=== PATIENT | male | born 1970 | race Caucasian/White ===

== ENCOUNTER 2022-05-11 09:37 | Emergency (ER) | payer OTHER, SELFPAY ==
--- NOTE | ~2022-05-11 | XR_ITS ---
EXAMINATION: XR chest 2V DATE: 05/11/2022 10:36 INDICATION: Back pain TECHNIQUE: PA and lateral views of the chest are obtained. COMPARISON: None available FINDINGS: The lungs are free of acute opacities. No pleural effusion or pneumothorax. The cardiomedia stinal silhouette is normal. Healed right-sided rib fractures are noted. IMPRESSION: 1. No acute cardiopulmonary abnormality. Reviewed, dictated and finalized at location A.
[2022-05-11 09:49] VITALS: BP 138/91; PULSE 58; RESP 14; O2SAT 100
--- NOTE | 2022-05-11 09:56 | ECG_ITS ---
Measurements Intervals [place] Rate: 49 P: 28 MD: 168 QRS: 4 QRSD: 86 T: 11 QT: 461 QTc: 416 Interpretive Statements SINUS BRADYCARDIA ANTEROSEPTAL INFARCT, AGE INDETERMINATE CONSIDER INFERIOR INFARCT, AGE INDETERMINATE BASELINE ARTIFACT- V1 ABNORMAL ECG NO PREVIOUS ECG AVAILABLE FOR COMPARISON Electronically Signed On 05-11-2022 11:58:13 CDT by Saqib Marquez D.O.
--- NOTE | 2022-05-11 09:57 | ED.BACK ---
HPI - Back Pain/Injury General Chief Complaint: Back Pain/Injury <MAKENNA Cancino Last Filed: 05/11/22 18:32> Stated Complaint: back pain <MAKENNA Cancino Last Filed: 05/11/22 18:32> Time Seen by Provider: 05/11/22 09:43 <MAKENNA Cancino Last Filed: 05/11/22 18:32> History of Present Illness HPI Narrative: Patient is a 51-year-old male with history of hypertension here for evaluation of mid back pain for the past week and a half. Patient states the pain is present under his bilateral shoulder blades and is worse with movement of his thorax and arms in addition to deep breaths. He has been attempting lidocaine patches, naproxen, Tylenol at home with mild but not complete relief of his pain. He states the pain worsened today which prompted his emergency department evaluation. He was recently treated for COVID 3 weeks ago with paxlovid, notes that his cough and congestion have improved. He denies any chest pain, shortness of breath, cough, fevers, chills, leg pain. 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 <MAKENNA Cancino Last Filed: 05/11/22 18:32> Related Data Allergies/Adverse Reactions: Allergies Allergy/AdvReac Type Severity Reaction Status Date / Time Penicillins Allergy Swelling Verified 05/11/22 12:40 of Lip/Tongue/Throat <MAKENNA Cancino Last Filed: 05/11/22 18:32> Review of Systems Review of Systems: Gen: Denies fevers or chills Eyes: Denies eye pain or visual change ENT: Denies congestion Respiratory: Denies shortness of breath or cough CV: Denies chest pain or palpitations GI: Denies abdominal pain nausea, emesis or diarrhea : denies burning, urgency, frequency or hematuria Musculoskeletal: Reports back pain. Neuro: Denies numbness, tingling, weakness or focal weakness Skin: Denies rash Except as documented, all other systems reviewed and negative <MAKENNA Cancino Last Filed: 05/11/22 18:32> Exam Narrative: APPEARANCE: Well appearing, no pain in distress, well-nourished. Head: Normocephalic and atraumatic. EYES: PERRLA/EOMI, conjunctivae clear NOSE: No nasal drainage EARS: External ear normal in appearance THROAT: Oropharynx is clear. Mucous membranes are moist. NECK: Supple. No adenopathy, no masses. RESPIRATORY: Notes pain with deep breaths. airway patent, respirations nonlabored. Clear to auscultation bilaterally, no rales, rhonchi, wheezing. CARDIOVASCULAR: Regular rate and rhythm without murmurs, rubs, or gallops. ABDOMINAL: Normoactive bowel sounds. Soft, nontender, nondistended. No rebound tenderness or guarding. MUSCULOSKELETAL: Tender to palpation to the left inferior scapula and right superior scapula. extremities are warm and well-perfused. Moves all extremities well. No edema. NEURO: Normal speech. No focal neurologic deficits. SKIN: Skin is warm and dry. No rashes. PSYCHIATRIC: Normal affect/mood. 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 Patient does have significant heavy lifting, use at work and does have to often have his arms in a sustained overhead position holding heavy objects. At the time of assessment, patient is neurovascularly intact without evidence of deformity or injury on exam. Pain is reproducible with movement and palpation. There is no midline cervical, thoracic, or lumbar pain. Cardiac work-up is reassuring. D-dimer is negative. Chest x-ray is clear. At this point, plan for discharge home with close outpatient follow-up given reassuring work-up today. We will optimize outpatient medication regimen. Plan discussed with patient, , family. For this patient encounter, I reviewed the WELDING MACHINE OPERATOR THERMIT or PA documentation, treatment plan, and medical decision making; and I had [id number] ti
[2022-05-11 10:42] VITALS: BP 125/81; PULSE 56; RESP 16; O2SAT 98
[2022-05-11 10:52] LABS: Basophils Percent Auto 0.4 % (0.2-1.2); Eosinophils Absolute Auto 0.1 K/mm3 (0-0.3); Eosinophils Percent Auto 1.2 % (0-4.4); Hematocrit 38.2 % (42.0-52.0); Hemoglobin 13.5 g/dL (14.0-18.0); Immature Granulocyte Absolute 0.02 K/mm3 (0.00-0.031); Immature Granulocyte Percent A 0.4 % (0-0.5); Lymphocytes Absolute Auto 1.36 K/mm3 (0.9-3.2); Lymphocytes Percent Auto 24.1 % (18.3-44.2); Mean Corpuscular HGB Conc 35.3 g/dl (32-36); Mean Corpuscular Hemoglobin 33.8 pg (26-34); Mean Corpuscular Volume 95.5 fl (80-100); Mean Platelet Volume 9.5 fl (7.4-10.4); Monocytes Absolute Auto 0.5 K/mm3 (0.1-0.6); Monocytes Percent Auto 8.9 % (2.6-8.5); Neutrophils Absolute Auto 3.7 K/mm3 (1.3-6.7); Platelet Count Result 415 k/mm3 (150-375); Red Cell Distribution Width 12.5 % (11.5-14.5); White Blood Count 5.6 K/mm3 (4.5-10.0)
[2022-05-11 11:02] LABS: Alanine Aminotransferase 18 U/L (6-50); Albumin Level 4.2 g/dL (3.5-5.1); Alkaline Phosphatase 73 U/L (38-126); Anion Gap 3 mmol/L (8-16); Aspartate Amino Transferase 36 U/L (17-59); Bilirubin,Total 0.4 mg/dL (0.2-1.3); Blood Urea Nitrogen 12 mg/dL (9-20); Carbon Dioxide 28 mmol/L (22-30); Chloride 102 mmol/L (98-107); Estimated CRCL calculation 74 ml/min; Estimated Glomerular Filt Rate > 60; Glucose 105 mg/dL (65-110); Potassium 3.9 mmol/L (3.4-5.0); Sodium 133 mmol/L (137-145)
[2022-05-11 11:13] LABS: Troponin I < 0.012 ng/mL (0.000-0.034)
[2022-05-11 11:14] LABS: D Dimer 0.44 ug/mL (<0.48)
[2022-05-11] MEDS: predniSONE 20 MG TABLET 40 MG PO (12:40)
[2022-05-11] MEDS: methocarbamoL 500 MG TABLET PO (12:40)
[2022-05-11] MEDS: KETOROLAC 30 MG/ML VIAL (*BKC) IM (12:40)
[2022-05-11 13:33] VITALS: BP 163/99; PULSE 57; RESP 18; O2SAT 100
== END 2022-05-11 13:38 | disposition home or self-care (01) ==
PROVIDERS: Physician Assistant; Emergency Provider Emergency Medicine
DX: M54.6 Pain in thoracic spine (principal); I10 Essential (primary) hypertension; Z86.16 Personal history of COVID-19; R00.1 Bradycardia, unspecified; R94.31 Abnormal electrocardiogram [ECG] [EKG]
CPT/HCPCS: 36415; 71046; 80053; 84484; 85025; 85380; 93005; 96372; 99284; A9270; J1885; J7512

== ENCOUNTER 2022-11-19 12:04 | Observation (INO) | payer OTHER, SELFPAY ==
[2022-11-19] VITALS (21 sets, daily range): BP systolic 90–146; BP diastolic 45–84; PULSE 83–112; RESP 16–28; TEMP 35.6–36.8; O2SAT 96–100; BMI 30.6
--- NOTE | ~2022-11-19 | CT_ITS ---
CT of the Abdomen and Pelvis: Indication: Nausea and vomiting, hernia Technique: 2.5 mm axial scans were obtained through the abdomen and pelvis following intravenous adm inistration of 100 cc of Omnipaque 350. Dose reduction technique was used on this scan by utilizing a utomated exposure control and iterative reconstruction technique. The dose-length product (DLP) was 6 64.45 mGy-cm. Findings: Scans through the lung bases are unremarkable. The liver, spleen, pancreas, gallbladder, and adrenal glands are within normal limits. No evidence o f aortic aneurysm. Probable minimal fullness of the renal collecting systems with fullness of the goyo ateral ureters. No lymphadenopathy. No bowel obstruction or bowel wall thickening. There is no evidence to suggest acute appendicitis. Images through the pelvis were performed. Urinary bladder unremarkable. There is mild haziness of per ivesical fat. Prostate gland and seminal vesicles are unremarkable. No ascites. Bilateral L5 pars int erarticularis defects are present, with minimal grade 1 anterolisthesis of L5 over S1. Impression: Fullness of the bilateral ureters, with probable minimal dilatation of the renal collecting systems. Mild haziness of perivesical fat. Correlate for cystitis. Bilateral L5 pars interarticularis defects, with minimal grade 1 anterolisthesis of L5 over S1. Reviewed, dictated and finalized at location . Impression: Fullness of the bilateral ureters, with probable minimal dilatation of the chiquita l collecting systems. Mild haziness of perivesical fat. Correlate for cystitis. Bilateral L5 pars interarticularis defects, with minimal grade 1 anterolisthesi s of L5 over S1.
--- NOTE | ~2022-11-19 | CT_ITS ---
Clinical Indication: Dyspnea CT Scan of the Chest with Contrast: Technique: Contiguous sections were acquired throughout the chest after intravenous administration of 100 cc of Omnipaque 350. Dose reduction technique was used on this scan by utilizing automated expos ure control and iterative reconstruction technique. The dose-length product (DLP) was 842.57 mGy-cm. Findings: There is no evidence of any significant mediastinal, hilar or axillary lymphadenopathy. There is no f illing defect in the pulmonary arterial tree to suggest pulmonary embolus. There is no evidence of ao rtic dissection or aneurysm. There is no evidence of pleural or pericardial effusion. The lungs are clear. No pulmonary nodules or infiltrates are noted. Images through the upper abdomen reveal no abnormalities. Impression: No evidence of pulmonary embolus, aortic dissection, or aortic aneurysm. Clear lungs. Reviewed, dictated and finalized at [facility]. Impression: No evidence of pulmonary embolus, aortic dissection, or aortic aneurysm. Clear lungs.
--- NOTE | ~2022-11-19 | CT_ITS ---
EXAMINATION: CT brain wo con DATE: 11/19/2022 13:14 INDICATION: Dizziness TECHNIQUE: Computed tomography (CT) of the head was performed without intravenous contrast. Sagittal and coronal reconstructions were performed. The mA was adjusted according to patient size. Iterative reconstruction technique was employed. The dose-length product was 605.33 mGy-cm. COMPARISON: None FINDINGS: No acute intracranial hemorrhage, acute infarction or abnormal extra axial fluid collection. Ventricl es are normal and symmetric. No mass/mass effect. The orbits, paranasal sinuses and mastoid air cells are normal. IMPRESSION: 1. Normal brain. No acute intracranial process. Reviewed, dictated and finalized at location A.
--- NOTE | ~2022-11-19 | XR_ITS ---
EXAMINATION: XR chest 1V portable DATE: 11/19/2022 12:36 INDICATION: Chest pain and vomiting TECHNIQUE: frontal view of the chest was obtained. COMPARISON: Chest radiograph dated 05/11/2022 FINDINGS: The lungs are clear with no focal airspace opacities, pulmonary edema, pleural effusion or pneumothor ax. The cardiomediastinal silhouette is normal. Visualized bones and soft tissues are unremarkable. IMPRESSION: 1. No acute cardiopulmonary disease. Reviewed, dictated and finalized at location A.
--- NOTE | 2022-11-19 12:05 | ECG_ITS ---
Measurements Intervals [place] Rate: 112 P: 48 NV: 159 QRS: -11 QRSD: 95 T: 29 QT: 352 QTc: 482 Interpretive Statements SINUS TACHYCARDIA ANTEROSEPTAL INFARCT, AGE INDETERMINATE CONSIDER INFERIOR INFARCT, AGE INDETERMINATE ABNORMAL ECG COMPARED TO ECG 05/11/2022 10:16:55 SINUS TACHYCARDIA NOW PRESENT Electronically Signed On 11-19-2022 13:21:48 CDT by Saqib Marquez D.O.
[2022-11-19 12:26] LABS: Basophils Percent Auto 0.2 % (0.2-1.2); Eosinophils Percent Auto 0.1 % (0-4.4); Hematocrit 41.4 % (42.0-52.0); Hemoglobin 15.5 g/dL (14.0-18.0); Immature Granulocyte Absolute 0.03 K/mm3 (0.00-0.031); Immature Granulocyte Percent A 0.3 % (0-0.5); Lymphocytes Absolute Auto 2.35 K/mm3 (0.9-3.2); Lymphocytes Percent Auto 26.3 % (18.3-44.2); Mean Corpuscular HGB Conc 37.4 g/dl (32-36); Mean Corpuscular Hemoglobin 34.5 pg (26-34); Mean Corpuscular Volume 92.2 fl (80-100); Mean Platelet Volume 9.3 fl (7.4-10.4); Monocytes Absolute Auto 0.7 K/mm3 (0.1-0.6); Monocytes Percent Auto 7.7 % (2.6-8.5); Neutrophils Absolute Auto 5.9 K/mm3 (1.3-6.7); Neutrophils Percent Auto 65.4 % (45.5-73.1); Platelet Count Result 370 k/mm3 (150-375); Red Blood Count 4.49 M/mm3 (4.6-6.20); Red Cell Distribution Width 13.2 % (11.5-14.5)
[2022-11-19] MEDS: SODIUM CHLORIDE 0.9% IV 1,000 ML 999 ML IV CONT ×3 (12:38→19:27)
[2022-11-19] MEDS: ONDANSETRON INJ 4 MG/2 ML VIAL IV PUSH ×2 (12:38→14:21)
[2022-11-19 12:40] LABS: Alanine Aminotransferase 21 U/L (6-50); Albumin Level 4.4 g/dL (3.5-5.1); Alkaline Phosphatase 57 U/L (38-126); Anion Gap 10 mmol/L (8-16); Aspartate Amino Transferase 50 U/L (17-59); Bilirubin,Total 0.5 mg/dL (0.2-1.3); Blood Urea Nitrogen 9 mg/dL (9-20); Calcium 8.8 mg/dL (8.4-10.2); Carbon Dioxide 21 mmol/L (22-30); Chloride 104 mmol/L (98-107); Estimated CRCL calculation 83 ml/min; Estimated Glomerular Filt Rate > 60; Glucose 154 mg/dL (65-110); Lipase 123 U/L (23-300); Sodium 135 mmol/L (137-145)
[2022-11-19 12:42] LABS: INR 1.1; Prothrombin Time 13.6 Seconds (11.1-14.7)
[2022-11-19 12:43] LABS: Partial Thromboplastin Time 27.4 SECONDS (22.3-36.8)
[2022-11-19 12:48] LABS: D Dimer 0.58 ug/mL (<0.48)
[2022-11-19 12:51] LABS: Troponin I < 0.012 ng/mL (0.000-0.034)
--- NOTE | 2022-11-19 12:59 | ED.GENADULT ---
HPI - General Adult General Chief complaint: Arrhythmia/Palpitations Stated complaint: palpitations-chest pain Time Seen by Provider: 11/19/22 12:12 Source: family and RN notes reviewed History of Present Illness HPI narrative: Patient presents to emergency department from home for palpitations. Patient states that starting in the middle night last night began to feel like his heart was beating fast he states has been associate with nausea vomiting as well as a sensation of brain fog. He denies having fevers or chills he denies any vision changes he denies any chest pain or shortness of breath he denies any diarrhea. Patient states he has had no abdominal pain states he has not been able to keep anything down today he denies any other symptoms at this. The patient does have a history of alcohol use and is on disulfiram his birthday is today and he did go out yesterday and drink. He states he last took his Dilusol from yesterday late afternoon and states that he did drink several drinks last night with last drink last evening Her history taking discussed with the patient as well as his who was present as well as his daughter on the phone Related Data Home Medications Medication Instructions Recorded Confirmed cyclobenzaprine 5 mg tablet mg 11/19/22 11/19/22 disulfiram 250 mg tablet mg 11/19/22 folic acid 1 mg tablet 11/19/22 hydrochlorothiazide 25 mg tablet mg 11/19/22 losartan 50 mg tablet mg 11/19/22 verapamil 240 mg tablet,extended mg PO 11/19/22 release Allergies Allergy/AdvReac Type Severity Reaction Status Date / Time Penicillins Allergy Swelling Verified 11/19/22 12:13 of Lip/Tongue/Throat Review of Systems Review of Systems: Gen.: Denies fevers or chills ENT: Denies congestion Respiratory: Denies shortness of breath or cough CV: Denies chest pain palpitation GI: Denies abdominal pain or diarrhea. Reports nausea and vomitting Musculoskeletal: Denies back pain or muscle pain Neuro: Denies numbness, tingling, weakness or focal weakness Skin: Denies rash Except as documented, all other systems reviewed and negative [facility] Past Medical History Medical History (Updated 11/19/22 @ 16:16 by Wally Stanford DO) Hypertension Social History Social History (Updated 11/19/22 @ 16:13 by Wally C. [place], DO) Smoking status: Never smoker Exam Narrative: APPEARANCE: No acute distress, nontoxic, resting in bed EYES: EOMI, PERRL HEENT: Normocephalic, atraumatic, mucosa dry RESPIRATORY: No respiratory distress Clear to auscultation bilaterally with no rhonchi wheezing or rales. CARDIOVASCULAR: Regular rate and rhythm without murmurs rubs or gallops. ABDOMINAL: Soft, nontender, nondistended, no rebound or guarding MUSCULOSKELETAl: Moves all extremities. No clubbing, cyanosis or edema. NEURO: Awake and alert x 4 Following commands, speech normal, no focal deficits SKIN:: Warm, dry. No rashes lesions or abrasions PSYCHIATRIC: Normal affect/mood, Course Course Emergency Course: Did contact poison control with the patient with an alcohol level greater than 150 currently on disulfiram symptomatic treatment is recommended : Discussed with HEATHER Forbes for Dr. Waite presentation and work-up agrees with admission at this time to the hospital service Discussed with patient and family results of workup and diagnosis. Discussed need for admission. Patient and family understand and agree to current treatment plan Vital Signs Vital signs: Vital Signs Temperature 97.1 F L 11/19/22 12:14 Pulse Rate 104 H 11/19/22 12:14 Respiratory Rate 16 11/19/22 12:14 Blood Pressure 110/56 L 11/19/22 12:14 Pulse Oximetry 98 11/19/22 12:14 Oxygen Delivery Room Air 11/19/22 12:14 Temperature 97.1 F L 11/19/22 12:14 Pulse Rate 89 11/19/22 16:01 Respiratory Rate 22 H 11/19/22 16:01 Blood Pressure 99/58 L 11/19/22 16:01 Pulse Oximetry 100 11/19/22 16:01 Oxygen Delivery Room A
[2022-11-19 13:01] LABS: Magnesium 1.7 mg/dL (1.6-2.3)
[2022-11-19 13:02] LABS: Ethanol 158 mg/dL (<10)
[2022-11-19 13:11] LABS: Lactic Acid Reflex 4.7 mmol/L (0.7-2.0)
[2022-11-19 13:25] LABS: Influenza A QL RT-PCR Negative (Negative); Influenza B QL RT-PCR Negative (Negative); SARS-CoV-2 RNA PCR Negative
[2022-11-19] MEDS: POTASSIUM CHLORIDE INJ 40 MEQ in SODIUM CHLORIDE 0.9% IV 500 ML 130 MEQ IVPB (13:27)
--- NOTE | 2022-11-19 13:48 | PC.NURSE ---
poison Control report that pt needs s/s management, fluid replacement, nausea medication. do an ekg reported to Dr Stanford
[2022-11-19 14:03] LABS: Alveolar/Arterial O2 Gradient 0.5 mmHg; Base Excess ABG -2.6 mEq/l (+/-2.0); Carboxyhemoglobin 0.3 % THb (0-2.0); Device ROOM AIR; Fractional Inspired Oxygen 21 %; Methemoglobin ABG 0.6 %THb (0-1.5); Modified Allen's Test Pass; Oxygen Content ABG 18.9 %vol (16.0-22.0); Oxygen Saturation ABG 98.4 % (95.0-100.0); Oxyhemoglobin 96.7 % THb (90.0-100.0); PCO2 ABG 28.9 mmHg (35.0-45.0); PO2 ABG 114.6 mmHg (80.0-100.0); PO2 FiO2 Ratio Arterial Blood 5.46 %; Reduced Hemoglobin 2.4 %THb (0-5.0); Site Drawn RIGHT RADIAL; Total Hemoglobin 13.8 g/dL (12.0-18.0); pH ABG 7.458 (7.350-7.450)
[2022-11-19 14:05] LABS: Appearance Urine Clear (Clear); Bacteria Urine None Seen /hpf; Bilirubin Urine Negative (Negative); Blood Urine Negative (Negative); Color Urine Dark Yellow (Yellow); Glucose Urine UA Negative (Negative); Ketones Urine 1+ mg/dL (Negative); Leukocyte Esterase Ur Negative LEU/UL (Negative); Nitrate Urine Negative (Negative); Protein Urine 1+ mg/dL (Negative); RBC Urine 0-2 /hpf (0-2); Squamous Epithelial Cell Urine None seen /hpf (Few); WBC Urine 0-5 /hpf
[2022-11-19 14:14] LABS: Add Urine Microscopic? YES
[2022-11-19 15:26] LABS: Troponin I < 0.012 ng/mL (0.000-0.034)
[2022-11-19 15:48] LABS: Reflex Lactic Acid Yes or No Add Lactic
--- NOTE | 2022-11-19 15:48 | PC.NURSE ---
POISON CONTROL CALLED BACK FOR UPDATE. AWARE OF PT BEING ADMITTED TO IMU AND TO CONTINUE BEING MONITORED
--- NOTE | 2022-11-19 17:00 | ADMGEN ---
This patient, Krzysztof Prince, was admitted to IMU Room 206-02. Patient/family oriented to hospital policies and general routines including ID bracelet, bed and alarms, visiting hours, pain management, procedures, bathroom and other care routines, personal items, smoking policy, room service/diet, and visiting hours. Information on how to activate the Rapid Response Team has been discussed. Patient/Family are encouraged to report perceived risks to care and to ask questions if they do not understand what they are told or what they should do.
--- NOTE | 2022-11-19 17:42 | PM.IMHP ---
H&P: HPI History of Present Illness Date/Time: 11/19/22 17:42 Chief Complaint: arrhythmia and palpitation Narrative: this is a 52-year-old male patient who has a history of alcohol abuse. The patient came to the emergency room today with complaint of palpitations. The patient started having this discomfort in the midline night last night. Patient stated that his heart was beating fast he also had nausea vomiting and sensation of brain fog. The patient denied have any fever or chills. No visual changes. No chest pain or shortness of breath. The patient had no abdominal pain but stated that he is not able to keep anything down today. The patient is on Dilusol? for alcohol abuse and he took his last dose yesterday late afternoon it stated that he did drink several drinks last night. His D-dimer was 0.58. PH 7.458 pCO2 was 28.9 PO2 114.6. Bicarb 20. Sodium was 135 repeat 137 potassium was 3.0 which was supplemented and he is up to 3.6 now. His glucose was 154 now 128. Lactic acid 4.7 now 6.1. Troponins nonreactive x3. He was negative for influenza A/B and COVID. Chest CTA which shows no evidence of pulmonary embolism aortic dissection or aortic aneurysm. Head CT shows normal brain no acute intracranial process. Chest x-ray no acute cardiopulmonary disease. The patient was given a total of 3 L of normal saline, the task Zofran and magnesium. The patient is being admitted to observation status on the date of service of 11/19/2022 Review of Systems Review of Systems: see HPI All systems reviewed & are unremarkable except as noted in HPI and below Constitutional: Constitutional: Reports as per HPI and Reports no additional constitutional complaints Eyes: Eyes: Reports as per HPI and Reports no additional eye complaints ENT: Reports system reviewed and no additional complaints, except as documented and Reports Normal hearing present Cardiovascular: Cardiovascular: Reports no additional cardiovascular complaints Respiratory: Respiratory: Reports no additional respiratory complaints and Reports no additional respiratory complaints Gastrointestinal: Gastrointestinal: Reports as per HPI and Reports no additional gastrointestinal complaints Musculoskeletal: Musculoskeletal: Reports no additional musculoskeletal complaints Integumentary/Breasts: Skin/Breast: Reports system reviewed and no additional complaints, except as docu and Reports as per HPI Neurologic: Reports system reviewed and no additional complaints, except as documented, Reports as per HPI and Reports Normal hearing present Psychiatric: Psychiatric: Reports no additional psychiatric complaints and Reports as per HPI Endocrine: Endocrine: Reports no additional endocrine complaints Hematologic/Lymphatic: Hematologic/Lymphatic: Reports no additional hematologic/lymphatic complaints Allergic/Immunologic: Allergic/Immunologic: Reports no additional allergic/immunologic complaints [facility] Past Medical History Medical History (Updated 11/19/22 @ 22:49 by Leidy Lira NP) Alcoholism Hypertension Surgical History Surgical History (Updated 11/19/22 @ 22:49 by Leidy Lira NP) H/O cervical spine surgery H/O shoulder surgery left S/P rotator cuff repair left Family History Family History (Updated 11/19/22 @ 22:50 by Leidy Lira NP) Father COPD (chronic obstructive pulmonary disease) Social History Social History (Updated 11/19/22 @ 22:51 by Leidy Lira NP) Social History: the patient is and lives with his . He has a history of alcohol abuse and has a drink for quite some time but this was his birthday weak again and he did drink some alcohol. The patient occasionally uses some marijuana socially. The patient works for [employer]. He has 2 children code status full code Smoking status: Never smoker Alcohol intake: former Drinks per week: 28 Substance use: never Lack of Transportation: No Lack
[2022-11-19 18:30] LABS: Troponin I < 0.012 ng/mL (0.000-0.034)
[2022-11-19 18:40] LABS: Lactic Acid 6.1 mmol/L (0.7-2.0)
[2022-11-19] MEDS: SODIUM CHLORIDE 0.9% IV 1,000 ML 125 ML IV CONT (19:27)
[2022-11-19 19:48] LABS: Anion Gap 9 mmol/L (8-16); Blood Urea Nitrogen 9 mg/dL (9-20); Calcium 7.9 mg/dL (8.4-10.2); Carbon Dioxide 22 mmol/L (22-30); Chloride 106 mmol/L (98-107); Estimated CRCL calculation 82 ml/min; Estimated Glomerular Filt Rate > 60; Glucose 128 mg/dL (65-110); Lipase 72 U/L (23-300); Potassium 3.6 mmol/L (3.4-5.0); Sodium 137 mmol/L (137-145)
[2022-11-19] MEDS: MAGNESIUM SULF 2 GM/WATER 50ML 2 GM/50 ML BAG IVPB (20:38)
[2022-11-19 20:44] LABS: Magnesium 1.4 mg/dL (1.6-2.3)
--- NOTE | 2022-11-19 23:01 | PC.NURSE ---
Updated LIBORIO Nieves from Poison Control of pt's current condition and most recent lab results. Poison Control to f/u 11/20/22.
[2022-11-20] VITALS (8 sets, daily range): BP systolic 132–156; BP diastolic 84–88; PULSE 65–77; RESP 16–18; TEMP 36.9–37; O2SAT 98–99
[2022-11-20] MEDS: SODIUM CHLORIDE 0.9% IV 1,000 ML 125 ML IV CONT (03:53)
[2022-11-20 04:49] LABS: Basophils Percent Auto 0.1 % (0.2-1.2); Hematocrit 33.6 % (42.0-52.0); Hemoglobin 12.3 g/dL (14.0-18.0); Immature Granulocyte Absolute 0.01 K/mm3 (0.00-0.031); Immature Granulocyte Percent A 0.1 % (0-0.5); Lymphocytes Absolute Auto 1.64 K/mm3 (0.9-3.2); Lymphocytes Percent Auto 24.6 % (18.3-44.2); Mean Corpuscular HGB Conc 36.6 g/dl (32-36); Mean Corpuscular Hemoglobin 34.5 pg (26-34); Mean Corpuscular Volume 94.1 fl (80-100); Mean Platelet Volume 9.2 fl (7.4-10.4); Monocytes Absolute Auto 0.5 K/mm3 (0.1-0.6); Monocytes Percent Auto 8.1 % (2.6-8.5); Neutrophils Absolute Auto 4.5 K/mm3 (1.3-6.7); Neutrophils Percent Auto 67.1 % (45.5-73.1); Platelet Count Result 259 k/mm3 (150-375); Red Blood Count 3.57 M/mm3 (4.6-6.20); Red Cell Distribution Width 13.4 % (11.5-14.5); White Blood Count 6.7 K/mm3 (4.5-10.0)
[2022-11-20 04:57] LABS: Lactic Acid Reflex 0.8 mmol/L (0.7-2.0)
[2022-11-20 05:02] LABS: Alanine Aminotransferase 18 U/L (6-50); Albumin Level 3.4 g/dL (3.5-5.1); Alkaline Phosphatase 41 U/L (38-126); Anion Gap 5 mmol/L (8-16); Aspartate Amino Transferase 34 U/L (17-59); Bilirubin,Total 0.7 mg/dL (0.2-1.3); Blood Urea Nitrogen 6 mg/dL (9-20); CRP 0.8 mg/dL (<1.0); Calcium 7.6 mg/dL (8.4-10.2); Carbon Dioxide 24 mmol/L (22-30); Chloride 108 mmol/L (98-107); Estimated CRCL calculation 82 ml/min; Estimated Glomerular Filt Rate > 60; Glucose 90 mg/dL (65-110); Lipase 77 U/L (23-300); Magnesium 2.2 mg/dL (1.6-2.3); Potassium 3.4 mmol/L (3.4-5.0); Sodium 137 mmol/L (137-145)
[2022-11-20] MEDS: ENOXAPARIN 40 MG/0.4 ML SYRINGE SUB-Q (09:14)
[2022-11-20] MEDS: FOLIC ACID 1 MG TABLET PO (09:14)
--- NOTE | 2022-11-20 10:18 | PC.NURSE ---
Spoke with Lara at [place] [facility]. No new issues noted with patient and labs are WNL. Poison Control will sign off of patient's case. We may call if any concerns arise.
--- NOTE | 2022-11-20 12:20 | PM.DS ---
DS: Admitting Diagnosis Discharge Date November 20, 2022 Admitting Diagnosis Disulfiram reaction DS: Discharge Diagnosis Discharge Diagnosis (1) Adverse effect of disulfiram: Code(s): T50.6X5A - Adverse effect of antidotes and chelating agents, initial encounter Status: Acute Assessment and Plan: the patient has a history of alcoholism and has been taking Antabuse. The patient did have in the evening last evening where he when out and drink. Quantity unknown. The patient has been having some nausea and and vomiting and has not been able to keep anything down. P.o. medications are on hold at this time. Continue with IV fluid the patient was given 3 boluses of IV fluids and his lactic level is over [address] of the abdomen has been ordered but not performed as of yet. Continue with IV fluids and replace electrolytes as necessary. (2) Low magnesium level: Code(s): R79.0 - Abnormal level of blood mineral Status: Acute Assessment and Plan: Patient's magnesium was replaced once continue to monitor levels could be related to the nausea vomiting or the alcoholism itself (3) Alcoholism: Code(s): F10.20 - Alcohol dependence, uncomplicated Status: Acute Assessment and Plan: the patient had been taking Antabuse and drink with the Antabuse in his system. This caused nausea and vomiting. Continue with IV fluids and anti emetics (4) Hypertension: Code(s): I10 - Essential (primary) hypertension Status: Acute Assessment and Plan: continue p.r.n. hydralazine his blood pressure is low at this time. The patient appears to be dehydrated and his potassium was low so the hydrochlorothiazide has been held hold losartan at this time due to his low blood pressure. DS: Summary Hospital Course Hospital Course: Patient was admitted after he had gone out drinking on disulfiram. Had some bad reactions which is expected. After IV fluids he is much better. He can be discharged home Time Spent with Patient Time attestation: Total time spent providing and/or coordinating discharge services: Exam Const: General: cooperative, healthy appearing, comfortable, no acute distress, well developed, alert, awake, Physically active, average body habitus and well nourished Nutritional Appearance: average body habitus and well nourished Orientation/consciousness: oriented to person, oriented to place, oriented to time and patient oriented x3 Limitations: no limitations HENMT: Head: normal to inspection, No palpable skull fracture present, normocephalic and atraumatic Ears: hearing grossly normal bilaterally and external ears normal Face/Nose/Sinus: Normal external nose present and Normal nares present Eyes: General: appearance normal, both eyes and all related structures Alignment and Position: alignment normal Periorbital: periorbital findings normal Eyelids: eyelids normal Sclera: sclerae normal Pupils: Equal, round and reactive pupils present EOM: EOMs intact bilaterally Neck: Neck: normal visual inspection, full ROM, no lymphadenopathy, trachea midline and supple Chest: Chest palpation & inspection: normal inspection of the chest Resp: Effort & Inspection: normal respiratory effort Auscultation: clear to auscultation bilaterally Cardio: Palpation: normal PMI Rate: regular rate Rhythm: regular rhythm Heart sounds: S1 normal heart sound present and S2 normal heart sound present Peripheral pulses: Peripheral pulses 2+ throughout GI: Inspection: normal to inspection Auscultation: normal bowel sounds Rectal Exam: deferred Back/Spine/Pelvis: Cervical Spine: cervical ROM normal Skin: General skin exam: normal color Lesions: no lesions Rashes: no rashes Trauma: no lacerations or abrasions Wounds: no wounds Hair: normal Nails: normal Neuro: General: oriented to person, oriented to place, oriented to time and patient oriented x3 Cranial nerves: Yes Equal,
== END 2022-11-20 13:20 | disposition home or self-care (01) ==
LOC: ANHED 12:32 → ANHIMU 16:07
PROVIDERS: Emergency Medicine; Nurse Practitioner; Admitting Provider Chiropractor; Emergency Provider Emergency Medicine; PCP Internal Medicine; Visit Provider Chiropractor
DX: R00.2 Palpitations (principal); R41.9 Unspecified symptoms and signs involving cognitive functions and awareness; T50.6X5A Adverse effect of antidotes and chelating agents, initial encounter; F10.20 Alcohol dependence, uncomplicated; Y90.6 Blood alcohol level of 120-199 mg/100 ml; Z20.822 Contact with and (suspected) exposure to COVID-19; F12.90 Cannabis use, unspecified, uncomplicated; R79.0 Abnormal level of blood mineral; I10 Essential (primary) hypertension; R07.9 Chest pain, unspecified; R94.31 Abnormal electrocardiogram [ECG] [EKG]; R79.1 Abnormal coagulation profile; R74.02 Elevation of levels of lactic acid dehydrogenase [LDH]; Z79.899 Other long term (current) drug therapy
CPT/HCPCS: 36415; 36600; 70450; 71045; 71275; 74177; 80048; 80053; 80307; 81001; 82375; 82805; 83050; 83605; 83690; 83735; 84443; 84484; 85025; 85380; 85610; 85730; 86140; 87636; 93005; 96361; 96365; 96366; 96367; 96372; 96375; 96376; 99285; A9270; G0378; J1650; J2405; J3475; J3480; J7030; J7040; Q9967

== ENCOUNTER 2023-04-06 16:14 | Emergency (ER) | payer OTHER, SELFPAY ==
--- NOTE | ~2023-04-06 | XR_ITS ---
EXAMINATION: XR chest 2V 04/06/2023 16:43 INDICATION: Chest pain PROCEDURE: 2 view chest COMPARISON: 11/19/2022 FINDINGS: The lungs are clear. The cardiomediastinal silhouette is within normal limits. There are no pleural effusions. There is no pneumothorax suspected. IMPRESSION: 1: NO ACUTE CARDIOPULMONARY DISEASE. Reviewed, dictated and finalized at location A.
--- NOTE | 2023-04-06 16:16 | ECG_ITS ---
Measurements Intervals [place] Rate: 58 P: 35 [place]: 185 QRS: 10 QRSD: 101 T: 13 QT: 440 QTc: 433 Interpretive Statements SINUS BRADYCARDIA ANTEROSEPTAL INFARCT, AGE INDETERMINATE CONSIDER INFERIOR INFARCT, AGE INDETERMINATE ABNORMAL ECG COMPARED TO ECG 11/19/2022 12:11:03 SINUS BRADYCARDIA NOW PRESENT Electronically Signed On 04-06-2023 20:12:00 CDT by Saqib Marquez D.O.
[2023-04-06 16:31] LABS: Basophils Percent Auto 0.7 % (0.2-1.2); Eosinophils Absolute Auto 0.5 K/mm3 (0-0.3); Hematocrit 40.9 % (42.0-52.0); Lymphocytes Absolute Auto 1.83 K/mm3 (0.9-3.2); Lymphocytes Percent Auto 34.3 % (18.3-44.2); Mean Corpuscular HGB Conc 36.7 g/dl (32-36); Mean Corpuscular Hemoglobin 33.2 pg (26-34); Mean Corpuscular Volume 90.5 fl (80-100); Mean Platelet Volume 9.6 fl (7.4-10.4); Monocytes Absolute Auto 0.7 K/mm3 (0.1-0.6); Monocytes Percent Auto 13.1 % (2.6-8.5); Neutrophils Absolute Auto 2.3 K/mm3 (1.3-6.7); Neutrophils Percent Auto 42.9 % (45.5-73.1); Platelet Count Result 349 k/mm3 (150-375); Red Blood Count 4.52 M/mm3 (4.6-6.20); Red Cell Distribution Width 12.9 % (11.5-14.5); White Blood Count 5.3 K/mm3 (4.5-10.0)
[2023-04-06 16:33] VITALS: BP 142/76; PULSE 55; RESP 18; TEMP 36.7; O2SAT 99
[2023-04-06 16:40] LABS: Alanine Aminotransferase 23 U/L (6-50); Albumin Level 4.6 g/dL (3.5-5.1); Alkaline Phosphatase 65 U/L (38-126); Anion Gap 7 mmol/L (8-16); Aspartate Amino Transferase 32 U/L (17-59); Bilirubin,Total 0.6 mg/dL (0.2-1.3); Blood Urea Nitrogen 15 mg/dL (9-20); Calcium 9.2 mg/dL (8.4-10.2); Carbon Dioxide 28 mmol/L (22-30); Chloride 101 mmol/L (98-107); Estimated Glomerular Filt Rate > 60; Glucose 107 mg/dL (65-110); Lipase 163 U/L (23-300); Potassium 3.4 mmol/L (3.4-5.0); Sodium 136 mmol/L (137-145)
[2023-04-06 16:42] LABS: Prothrombin Time 13.5 Seconds (11.1-14.7)
[2023-04-06 16:43] LABS: Partial Thromboplastin Time 30.5 SECONDS (22.3-36.8)
[2023-04-06 16:51] LABS: Troponin I < 0.012 ng/mL (0.000-0.034)
[2023-04-06 17:48] VITALS: BP 107/63; PULSE 52; O2SAT 100
[2023-04-06 20:42] VITALS: BP 124/87; PULSE 56; RESP 13; TEMP 36.6; O2SAT 100
--- NOTE | 2023-04-06 21:28 | ED.CHESTPAIN ---
HPI - Chest Pain General Chief Complaint: Chest Pain Stated Complaint: chest pain, abnormal EKG Time Seen by Provider: 04/06/23 20:55 Source: patient Mode of arrival: ambulatory Limitations: no limitations History of Present Illness HPI narrative: This is a 52 year old male that presents to the ER for palpitations present over the last week. Reports he has had increased stress at work. Reports during a stressful day at work he started to feel palpitations. He has had them intermittently since. Reports he has had some associated chest tightness. He saw his PCP today who will be getting him set up with an outpatient stress test and echocardiogram. Denies shortness of breath or lower extremity edema. Related Data Home Medications Medication Instructions Recorded Confirmed cyclobenzaprine 5 mg tablet 5 mg PO HS PRN Muscle Spasm 11/19/22 11/19/22 disulfiram 250 mg tablet 250 mg PO DAILY 11/19/22 11/19/22 folic acid 1 mg tablet 1 mg PO DAILY 11/19/22 11/19/22 hydrochlorothiazide 25 mg tablet 25 mg PO DAILY 11/19/22 11/19/22 losartan 50 mg tablet 50 mg PO DAILY 11/19/22 11/19/22 verapamil 240 mg tablet,extended 240 mg PO DAILY 11/19/22 11/19/22 release Allergies Allergy/AdvReac Type Severity Reaction Status Date / Time Penicillins Allergy Swelling Verified 11/19/22 12:13 of Lip/Tongue/Throat Review of Systems Review of Systems: CONSTITUTIONAL: Denies fever CARDIOVASCULAR: Reports chest pain, palpitations. Denies edema. RESPIRATORY: Denies dyspnea. All systems reviewed & are unremarkable except as noted in HPI and below PMFSH Past Medical History Medical History (Updated 04/06/23 @ 21:43 by Selena Calderón PA-C) Alcoholism Hypertension Surgical History Surgical History (Updated 11/19/22 @ 22:49 by Leidy Lira NP) H/O cervical spine surgery H/O shoulder surgery left S/P rotator cuff repair left Family History Family History (Updated 11/19/22 @ 22:50 by Leidy Lira NP) Father COPD (chronic obstructive pulmonary disease) Social History Social History (Updated 11/19/22 @ 22:51 by Leidy Lira NP) Social History: the patient is and lives with his . He has a history of alcohol abuse and has a drink for quite some time but this was his birthday weak again and he did drink some alcohol. The patient occasionally uses some marijuana socially. The patient works for [employer]. He has 2 children code status full code Smoking status: Never smoker Alcohol intake: former Drinks per week: 28 Substance use: never Lack of Transportation: No Lack of Food: Never True Current Housing: I Have Housing Concerned About Future Housing: No Difficulty Paying Gas/Electric Bills: No Difficulty Paying for Meds: No Currently Unemployed: No Education: Decline to Answer Difficulty w/ Childcare or Family Care: No Spiritual care concerns: No Exam Narrative: GENERAL: Well-appearing, well-nourished, and in no acute distress. HEAD: Normocephalic, atraumatic. EYES: EOMI. NECK: No JVD CHEST: Clear to auscultation. No respiratory distress. No wheezes rales or rhonchi HEART: Regular rate and rhythm. No murmur heard. Normal peripheral pulses. EXTREMITIES: Normal range of motion. No edema. SKIN: Warm, dry, no rash. NEURO: No focal deficits. Alert and oriented x3. PSYCH: Normal mood and affect Course Course Emergency Course: Patient and family updated on workup and agree with plan of care Vital Signs Vital signs: Vital Signs Temperature 98.1 F 04/06/23 16:33 Pulse Rate 55 L 04/06/23 16:33 Respiratory Rate 18 04/06/23 16:33 Blood Pressure 142/76 H 04/06/23 16:33 Pulse Oximetry 99 04/06/23 16:33 Oxygen Delivery Room Air 04/06/23 16:33 Temperature 97.8 F 04/06/23 20:42 Pulse Rate 51 L 04/06/23 22:18 Respiratory Rate 14 04/06/23 22:18 Blood Pressure 112/84 04/06/23 22:18 Pulse Oximetry 98 07/2
[2023-04-06 21:38] LABS: Troponin I < 0.012 ng/mL (0.000-0.034)
[2023-04-06 22:18] VITALS: BP 112/84; PULSE 51; RESP 14; O2SAT 98
== END 2023-04-06 23:08 | disposition home or self-care (01) ==
PROVIDERS: Preventive Medicine Aerospace Medicine; Emergency Provider Physician Assistant; PCP Internal Medicine
DX: R00.2 Palpitations (principal); R07.9 Chest pain, unspecified; I10 Essential (primary) hypertension; R00.1 Bradycardia, unspecified; R94.31 Abnormal electrocardiogram [ECG] [EKG]
CPT/HCPCS: 36415; 71046; 80053; 83690; 84484; 85025; 85610; 85730; 93005; 99284